=== PATIENT | male | born 1990 | race Two or more races ===

== ENCOUNTER 2023-12-11 14:39 | Emergency (ER) | payer MEDICAID ==
[2023-12-11] MEDS ORDERED: FLUORESCEIN STRIPS 1 MG STRIP ONE (15:02)
[2023-12-11] MEDS ORDERED: PROPARACAINE 0.5% OPHTH DROPS 15 ML BTL ONE (15:02)
[2023-12-11] MEDS ORDERED: TOBRAMYCIN 0.3% OPHTH DROPS 5 ML BTL ONE (16:09)
== END 2023-12-11 15:20 | disposition home or self-care (01) ==
LOC: EC 14:39
DX: H10.89 Other conjunctivitis (principal)
CPT/HCPCS: 93005; 99283